=== PATIENT | female | born 1955 | race Caucasian/White ===

== ENCOUNTER → 2016-12-06 | Outpatient (CLI) | payer BC ==
[~2016-12-06] MED LIST: AMOX-358 PO; AMOX1TAB12 PO; SERT50TA PO; TRIA10.8 NS; alprazolam; lasix; levothyroxine; wellbutrin
[2016-12-06 19:30] VITALS: BP 134/93
--- NOTE | 2016-12-06 19:30 | Urgent Care T Sheet Gen (E) ---
Intake General Temperature (Fahrenheit): 97.9 Pulse: 83 Blood Pressure Systolic: 134 Blood Pressure Diastolic: 93 Respirations: 18 SPO2: 97 Chief Complaint: UC Ear/Nose/Throat Complaint Description of Symptoms Pt present with 2 1/2 of nasal congestion, purulent nasal drainage, and facial pain. Pt denies any vision changes, fever, or chills. Pt states she has had a headache, pain in teeth, and cough. States she has had two sinus infections since moving here from [facility] with last one in August. Pt states her BP is sometimes elevated when she is feeling this way. Source: Patient Exam Limitations: No limitations History of Present Illness Onset & Duration: Weeks (2.5) Timing: Worse Severity: Moderate Modifying Factors: None Associated Symptoms: Cough, Headaches, Nasal congestion, Sinus congestion Recent Trauma: No Similar Sympotms Previously: Yes Allergies: Coded Allergies: wasp venom (Unverified Allergy, Unknown, 04/30/16) Home Meds Active Scripts Amoxicillin/Clavulanate Potassium (Augmentin 875mg/125mg)1 Each Tablet1 Tab PO BID Infection #20 TAB Ref 0 1 tab BID x10 days Prov:ERICKLINK Nury [employer] HEL[employer] 08/08/16 [levothyroxine] No Conflict Check Daily Prov:LINK SUAREZ [employer] HEL[employer] 11/03/14 [lasix] No Conflict Check Daily Prov:LINK SUAREZ [employer] HEL[employer] 11/03/14 Reported Medications Sertraline HCl 50 Mg [id number] Mg PO DAILY 04/30/16 Respiratory Constitutional Symptoms: No No syptoms reported, No Chills, No Fever, No Malaise EENTM: Nose Pain Nose Congestion Other (Pain in teeth, pain in maxillary and frontal sinus bilateral) Respiratory: CoughNo Orthopnea, No Short of breath, No Stridor, No Wheezing Cardiovascular: No Chest pain, No Edema, No Palpitations, No Syncope Gastrointestinal/Abdominal: No Abdominal pain, ConstipationNo Diarrhea Genitourinary: No symptoms reported Musculoskeletal: Neck pain Skin: No symptoms reported All Other Systems Reviewed Remaining Systems: All other systems reviewed with negative findings Past Llqtkye-Ikqxzv-Kiuhmz Hx Patient's Social History Alcohol Use: Denies Use Smoking Status: Never smoker Recent foreign travel: No Surgeries/Hospitalizations Hospitalization/Surgery Hx: Sinus Surgery x 2- h/o Cancer- 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 Cardiovascular Cardiovascular History: Congestive Heart Failure Gastrointestinal GI/Endocrine History: Thyroid disorder HEENT Impaired Vision: Glasses Hearing Impaired: None Psychosocial Behavior Disorders: Anxiety, Depression Physical Exam Physical Exam General Appearance: WD/WN No apparent distress Eyes, Ears, Nose, Throat Ex: PERRL/EOMI TMs normal Pharyngeal erythema Other ( nasal mucosa inflamed, turbinates swollen bilat., purulent exudate, maxillary and frontal sinus TTP ) Neck Exam: Non tender Full range of motion Supple Normal inspection Normal thyroid Stiff neck Respiratory Exam: Chest non-tender Lungs clear Normal breath sounds No respiratory distress No accessory muscles usedNo Respiratory distress, No Stridor Cardiovascular Exam: Regular rate, rhythm GI/ Exam: Non tender Skin Exam: Normal color Warm/dry/intact No rashes Neurologic/Psychiatric Exam: Oriented times 4 CN's II-X nml No motor deficits No sensory deficits Mood/affect nml Lymphatic Exam: No adenopathy Departure Urgent Care Impression Chief Complaint: UC Ear/Nose/Throat Complaint Impression: Primary Impression: Sinusitis Qualified Code: J01.10 - Acute frontal sinusitis, unspecified Departure Disposition: 01 HOME OR SELF-CARE Condition: Stable Referrals: JOSÉ BEARD MD (PCP) Additional Instructions: Also called in Fluticosone nasal spray 2 sprays each nostril daily. Encouraged saline nasal irrigation BID. Use Tylenol for analgesia. Encouraged fluids and rest. Scripts Amoxicillin/Clavulanate Potassium (Augmentin 875mg/125mg)1 Each Tablet1 Each PO BID Infection #14 TAB Ref 0 Prov:YARELIS MCPHERSON APRN 12/06/16 End of report . YARELIS MCHPERSON APRN Dec 06, 2016 19:30
== END ==
LOC: MHUC 18:00
PROVIDERS: ATTEND Nurse Practitioner
DX: J01.10 Acute frontal sinusitis, unspecified (principal)
CPT/HCPCS: 99213